=== PATIENT | female | born 1930 | race Caucasian/White ===

== ENCOUNTER 2016-10-17 17:55 | Emergency (ER) | payer MEDICARE, MEDICAID ==
[~2016-10-17] VITALS: Ht 167.6 cm; Wt 65.3 kg
[~2016-10-17 17:55] MED LIST: AMLO5TAB2 PO; ASPI-605 PO; CARV3.122 PO; CEPH-569 PO; DIPH50CA4 PO; DOCU-25 PO; FURO20TA4 PO; HYDR-552 PO; LANS15TA6 PO; MECL12.582 PO; PRAM0.253 PO; ZOLP5TAB2 PO
[2016-10-17 18:45] LABS: BASOPHILS # (AUTO) 0.1 /CMM (0.0-0.2); BASOPHILS % (AUTO) 0.8 % (0.0-2.0); DIFF TOTAL % 100 %; EOSINOPHILS # (AUTO) 0.1 /CMM (0.0-0.7); EOSINOPHILS % (AUTO) 1.1 % (0.0-6.0); HEMATOCRIT 38 % (33-45); HEMOGLOBIN 12.8 g/dL (11.5-14.8); LYMPHOCYTES # (AUTO) 0.8 /CMM (0.8-4.8); MEAN CORPUSCULAR HEMOGLOBIN 29 PG (26.0-33.0); MEAN CORPUSCULAR HGB CONC 34 g/dl (31.0-36.0); MEAN CORPUSCULAR VOLUME 86 fL (82-100); MONOCYTES # (AUTO) 0.6 /CMM (0.1-1.30); MONOCYTES % (AUTO) 5.6 % (2.0-12.0); NEUTROPHILS # (AUTO) 8.8 /CMM (1.8-8.9); NEUTROPHILS % (AUTO) 84.5 % (43.0-81.0); PLATELET COUNT (AUTO) 209 /CMM (150-450); WHITE BLOOD COUNT (AUTO) 10.4 K/uL (4.3-11.0)
[2016-10-17] MEDS ORDERED: TRAM50TA2 PO (18:49)
[2016-10-17] MEDS ORDERED: ROSU5TAB PO (18:49)
[2016-10-17] MEDS ORDERED: LOSA25TA13 PO (18:49)
[2016-10-17] MEDS ORDERED: MECL12.582 PO (18:49)
[2016-10-17 18:59] LABS: ALBUMIN 3.8 g/dL (3.4-5.0); BILIRUBIN,DIRECT 0.1 mg/dL (0.0-0.2); BILIRUBIN,TOTAL 0.4 mg/dL (0.2-1.0); CALCIUM, SERUM 9.1 mg/dL (8.5-10.1); CREATININE 0.8 mg/dL (0.6-1.3); INDIRECT BILIRUBIN 0.3 mg/dL (0.0-1.1); POTASSIUM 4.3 mmol/L (3.5-5.1); TOTAL PROTEIN, SERUM 7.2 g/dL (6.4-8.2)
[2016-10-17] MEDS ORDERED: IV LR 500 ML IV ONE ×2 (19:00→19:20)
[2016-10-17] MEDS ORDERED: ONDANSETRON HCL/PF 4 MG/2 ML VIAL IVP ONE (19:00)
[2016-10-17 19:01] LABS: TROPONIN I 0.035 ng/mL (0.00-0.056)
[2016-10-17] MEDS ORDERED: IV SET PRIMARY 1 EA INFUS.SET MC ONE (19:19)
[2016-10-17] MEDS ORDERED: ONDANSETRON HCL/PF 4 MG/2 ML VIAL ONE (19:19)
[2016-10-17 19:42] LABS: KETONES,URINE Negative (NEGATIVE); LEUKOCYTE ESTERASE ,URINE Trace (NEGATIVE)
[2016-10-17 19:45] LABS: ADD UA MICROSCOPIC YES
[2016-10-17 19:51] VITALS: BP 153/63
[2016-10-17 19:53] LABS: ADD URINE CULTURE NO
[2016-10-17] MEDS ORDERED: SUCRALFATE 1 G/10 ML UDC ONE (20:12)
[2016-10-17] MEDS ORDERED: SUCRALFATE 1 G/10 ML UDC PO ONE (20:30)
[2016-10-17] MEDS ORDERED: IPRATROPIUM NEB FS 0.5 MG/2.5 ML AMPUL.NEB ONE (21:19)
[2016-10-17] MEDS ORDERED: ALBUTEROL FS 2.5 MG/3 ML VIAL.NEB ONE (21:19)
[2016-10-17] MEDS ORDERED: IPRATROPIUM NEB FS 0.5 MG/2.5 ML AMPUL.NEB NEB ONE (21:30)
[2016-10-17] MEDS ORDERED: ALBUTEROL FS 2.5 MG/3 ML VIAL.NEB CONTNEB ONE (21:30)
== END 2016-10-17 19:52 | disposition home or self-care (01) ==
LOC: ER 17:58
DX: R11.2 Nausea with vomiting, unspecified (principal); R19.7 Diarrhea, unspecified; I10 Essential (primary) hypertension; M19.90 Unspecified osteoarthritis, unspecified site; Z95.0 Presence of cardiac pacemaker; Z79.82 Long term (current) use of aspirin; R06.02 Shortness of breath
CPT/HCPCS: 36415; 71010; 80048; 80076; 81001; 83690; 84484; 85025; 93005; 94640 ×2; 96374; 99285; A4606; J2405; J7120; 81000-TC; Z7610

== ENCOUNTER → 2016-10-23 | Emergency (ER) | payer MEDICARE, MEDICAID ==
[~2016-10-23] VITALS: Ht 152.4 cm; Wt 68.0 kg
[~2016-10-23] MED LIST changes: -ASPI-605 PO; -CEPH-569 PO; -DOCU-25 PO; -HYDR-552 PO; +LOSA25TA13 PO; +ROSU5TAB PO; +TRAM50TA2 PO
[2016-10-23 09:33] VITALS: BP 145/70
== END | disposition home or self-care (01) ==
LOC: ER 08:01
DX: K59.00 Constipation, unspecified (principal); M19.90 Unspecified osteoarthritis, unspecified site; I10 Essential (primary) hypertension; Z79.82 Long term (current) use of aspirin
CPT/HCPCS: A4606; Z7610

== ENCOUNTER 2018-06-03 19:24 | Inpatient (IN) | payer MEDICARE, MEDICAID ==
[~2018-06-03] VITALS: Ht 160 cm; Wt 60.3 kg
[~2018-06-03 19:24] MED LIST changes: -AMLO5TAB2 PO; +AMLO5TAB7 PO
--- NOTE | 2018-06-03 19:43 | NUR ---
TO ER BED 9 C/O GENERALIZED WEAKNESS. PT AA/O X4. NO S/S SOB. SKIN PINK, WARM, DRY. MOVES ALL EXTREMITIES WELL. EQUAL CIVIL PROCESS SERVER, EQUAL FACIAL SYMMETRY. NAD. VSS. STABLE CONDITION. WILL CONTINUE TO MONITOR.
[2018-06-03] MEDS ORDERED: IV NS 0.9% 500 ML BAG IV ONE (20:00)
--- NOTE | 2018-06-03 20:03 | NUR ---
XRAY AT BEDSIDE
[2018-06-03 20:07] LABS: BASOPHILS % (AUTO) 0.4 % (0.0-2.0); EOSINOPHILS % (AUTO) 1.6 % (0.0-6.0); HEMATOCRIT 36 % (33-45); HEMOGLOBIN 12.4 g/dL (11.5-14.8); LYMPHOCYTES % (AUTO) 16.5 % (20.0-44.0); MEAN CORPUSCULAR HGB CONC 34 g/dl (31.0-36.0); MEAN CORPUSCULAR VOLUME 88 fL (82-100); MONOCYTES # (AUTO) 0.5 /CMM (0.1-1.30); MONOCYTES % (AUTO) 8.2 % (2.0-12.0); NEUTROPHILS # (AUTO) 4.5 /CMM (1.8-8.9); NEUTROPHILS % (AUTO) 73.3 % (43.0-81.0); PLATELET COUNT (AUTO) 259 /CMM (150-450); RED BLOOD CELL COUNT(AUTO) 4.14 MIL/uL (4.0-5.2); WHITE BLOOD COUNT (AUTO) 6.1 K/uL (4.3-11.0)
[2018-06-03 20:20] LABS: CARBON DIOXIDE 21 mmol/L (21-32); CHLORIDE 93 mmol/L (98-107); CREATININE 1.5 mg/dL (0.6-1.3); GLUCOSE 120 mg/dL (74-106); POTASSIUM 4.9 mmol/L (3.5-5.1); SODIUM SERUM 124 mmol/L (136-145); UREA NITROGEN, BLOOD 32 mg/dL (7-18)
[2018-06-03 20:24] LABS: INR 0.92 (0.85-1.15)
[2018-06-03 20:24] LABS: APPEARANCE,URINE Clear (CLEAR); BILIRUBIN,URINE Negative (NEGATIVE); BLOOD, URINE Negative Ery/uL (NEGATIVE); COLOR,URINE Yellow (YELLOW); KETONES,URINE Negative (NEGATIVE); LEUKOCYTE ESTERASE ,URINE Moderate (NEGATIVE); NITRITE, URINE Positive (NEGATIVE); PH,URINE 5.5 (5.0-8.0); PROTEIN,URINE Negative (NEGATIVE); UGLUCOSE Negative (NEGATIVE); UROBILINOGEN,URINE 0.2 EU/dL (0.2)
[2018-06-03 20:25] LABS: BACTERIA,URINE 4+ /HPF (None Seen); RBC,URINE NONE SEEN /HPF (0-2); SQUAMOUS EPITHELIAL CELL,UR Few /HPF (None Seen); WBC,URINE 21-50 /HPF (0-3)
[2018-06-03 20:28] LABS: TROPONIN I < 0.017 ng/mL (0.00-0.056)
[2018-06-03 20:29] LABS: SERUM AMMONIA 12 umol/L (11-32)
[2018-06-03 20:34] LABS: ALANINE AMINOTRANSFERASE 12 U/L (12-78); ALBUMIN 3.3 g/dL (3.4-5.0); ALKALINE PHOSPHATASE 51 U/L (46-116); ASPARTATE AMINOTRANSFERASE 16 U/L (15-37); BILIRUBIN,DIRECT 0.1 mg/dL (0.0-0.2); BILIRUBIN,TOTAL 0.5 mg/dL (0.2-1.0); TOTAL PROTEIN, SERUM 6.9 g/dL (6.4-8.2)
--- NOTE | 2018-06-03 20:45 | NUR ---
BROUGHT TO CT
[2018-06-03 20:57] LABS: THYROID STIMULATING HORMONE 1.169 uIU/mL (0.358-3.74)
[2018-06-03] MEDS ORDERED: CEFTRIAXONE 1 G VIAL ONE (21:28)
[2018-06-03] MEDS ORDERED: CEFTRIAXONE 1GM BAG (ER ONLY) 1 GM/50 ML PIGGYBACK IV ONE (21:30)
[2018-06-03] MEDS ORDERED: IV NS 0.9% 1,000 ML BAG IV ONE (21:30)
--- NOTE | 2018-06-03 21:59 | NUR ---
REPORT GIVEN TO JORDI DOWNS
[2018-06-03 22:15] VITALS: BP 140/58
--- NOTE | 2018-06-03 22:15 | NUR ---
GEOTECHNICAL ENGINEER NOTES PATIENT ARRIVED ON TO THE UNIT VIA GURNEY AT 2215 ACCOMPANIED BY HER FAMILY. THE PATIENT IS PRIMARILY CZE[place] SPEAKER. PER DAUGHTERS PT HAS BECOME INCREASINGLY MORE WEAK FOR THE PAST FEW WEEKS. THE PATIENT HAS A RIGHT WRIST #18 IV INTACT AND PATENT. EDUCATED THE PATIENT ON THE USE OF THE CALL LIGHT. ALL PATIENT BELONGINGS ACCOUNTED FOR AND DOCUMENTED. PT HAS SOME REDNESS IN THE BUTTOCKS PHOTO TAKEN AND ADDED TO CHART. SAFETY PRECAUTIONS IN PLACE, BED IN LOWEST LOCKED POSITION, X2 SIDE RAILS UP AND CALL LIGHT WITHIN REACH. WILL CONTINUE TO MONITOR.
--- NOTE | 2018-06-03 22:19 | NUR ---
PT TRANSPORTED TO TELE UNIT WITH STABLE CONDITION. NAD. VSS. VIA ACLS PROTOCOL
[2018-06-04] VITALS: BP 141/59
[2018-06-04] MEDS ORDERED: MECLIZINE HCL 12.5 MG TABLET PO PRN
[2018-06-04] MEDS ORDERED: MAG HYDROX/AL HYDROX/SIMETH 30 ML UDC PO PRN
[2018-06-04] MEDS ORDERED: HYDROCODONE/APAP 5/325MG 1 EACH TABLET PO PRN
[2018-06-04] MEDS ORDERED: ACETAMINOPHEN 325 MG TABLET PO PRN
[2018-06-04] MEDS ORDERED: Z GUARD REMEDY 2 OZ OINT TP PRN
[2018-06-04] MEDS ORDERED: ONDANSETRON HCL/PF 4 MG/2 ML VIAL IVP PRN
[2018-06-04] MEDS: MORPHINE SULFATE INJ 2 MG/ML DISP.SYRIN IV PRN ×2 (00:24→05:36)
[2018-06-04] MEDS: IV NS 0.9% 1,000 ML IV SCH ×2 (00:24→20:24)
--- NOTE | 2018-06-04 00:24 | NUR ---
RN NOTES PT REQUESTED PRN PAIN MEDICATION. WILL ADMINISTER MORPHINE 1 MG AND CONTINUE TO MONITOR.
[2018-06-04 04:00] VITALS: BP 154/55
[2018-06-04 06:41] LABS: BASOPHILS % (AUTO) 0.4 % (0.0-2.0); HEMATOCRIT 34 % (33-45); HEMOGLOBIN 11.9 g/dL (11.5-14.8); LYMPHOCYTES # (AUTO) 1.2 /CMM (0.8-4.8); LYMPHOCYTES % (AUTO) 20.1 % (20.0-44.0); MEAN CORPUSCULAR HGB CONC 35 g/dl (31.0-36.0); MEAN CORPUSCULAR VOLUME 88 fL (82-100); MONOCYTES # (AUTO) 0.6 /CMM (0.1-1.30); MONOCYTES % (AUTO) 9.9 % (2.0-12.0); NEUTROPHILS % (AUTO) 67.6 % (43.0-81.0); PLATELET COUNT (AUTO) 215 /CMM (150-450); RED BLOOD CELL COUNT(AUTO) 3.85 MIL/uL (4.0-5.2)
[2018-06-04] MEDS: MAGNESIUM HYDROXIDE 30 ML UDC PO PRN ×2 (06:52→22:33)
--- NOTE | 2018-06-04 06:53 | NUR ---
RN NOTES PT COMPLAINED OF CONSTIPATION FOR 4 DAYS. WILL ADMINISTER MILK OF MAGNESIA AND ENDORSE TO DAY SHIFT NURSE FOR CONTINUITY OF CARE.
--- NOTE | 2018-06-04 06:54 | NUR ---
RN CLOSING NOTES PATIENT AWAKE AND ALERT. NO APPARENT S/S OF PAIN, DISTRESS OR SOB AT THIS TIME. THE PATIENT IS PRIMARILY DANISH SPEAKER. THE PATIENT HAS A RIGHT WRIST #18 IV INTACT AND RUNNING NS @50ML/HR. PT TELE MONITORED V PACING RATE IN THE 70S. ALL PATIENT NEEDS MET OVERNIGHT. SAFETY PRECAUTIONS IN PLACE, BED IN LOWEST LOCKED POSITION, X2 SIDE RAILS UP AND CALL LIGHT WITHIN REACH. WILL ENDORSE TO DAY SHIFT NURSE FOR CONTINUITY OF CARE.
[2018-06-04 07:04] LABS: CHOLESTEROL 127 mg/dL (<200); HDL CHOLESTEROL 42 mg/dL (40-60); LDL 62 mg/dL (0-99); THYROID STIMULATING HORMONE 1.076 uIU/mL (0.358-3.74); TRIGLYCERIDES 165 mg/dL (30-150)
[2018-06-04 07:05] LABS: ALANINE AMINOTRANSFERASE 10 U/L (12-78); ALBUMIN 2.9 g/dL (3.4-5.0); ALKALINE PHOSPHATASE 45 U/L (46-116); ASPARTATE AMINOTRANSFERASE 15 U/L (15-37); BILIRUBIN,TOTAL 0.4 mg/dL (0.2-1.0); CARBON DIOXIDE 21 mmol/L (21-32); CHLORIDE 102 mmol/L (98-107); GLUCOSE 94 mg/dL (74-106); MAGNESIUM 1.7 mg/dL (1.8-2.4); PHOSPHORUS 2.6 mg/dL (2.5-4.9); POTASSIUM 4.3 mmol/L (3.5-5.1); SODIUM SERUM 134 mmol/L (136-145); TOTAL PROTEIN, SERUM 6.1 g/dL (6.4-8.2); UREA NITROGEN, BLOOD 25 mg/dL (7-18)
[2018-06-04] MEDS ORDERED: PANTOPRAZOLE 40 MG TABLET.DR PO SCH (07:30)
[2018-06-04 08:00] VITALS: BP 147/52
--- NOTE | 2018-06-04 08:00 | NUR ---
RN NOTES PATIENT IN BED RESTING NO SOB OR ACUTE DISTRESS NOTED. PATIENT ALERT, ORIENTED X3. PERIPHERAL IV INTACT PATENT. BED IN LOW LOCKED POSITION, CALL LIGHT WITHIN REACH. WILL CONTINUE TO MONITOR.
[2018-06-04] MEDS: PANTOPRAZOLE 40 MG VIAL IV SCH (08:29)
[2018-06-04] MEDS ORDERED: SIMVASTATIN 20 MG TABLET PO SCH (09:00)
[2018-06-04] MEDS ORDERED: MECLIZINE HCL 12.5 MG TABLET PO SCH (09:00)
--- NOTE | 2018-06-04 09:24 | NUR ---
TONGUE AND GROOVE MACHINE SETTER NOTES PATIENT SEEN AND EVALUATED BY DR. SMITH ORDERS TO CHANGE PATIENT FROM NPO TO CARDIAC DIET. NOTED AND CARRIED OUT.
[2018-06-04] MEDS: HYDROCODONE/APAP 10/325MG 1 EA TABLET PO PRN ×3 (09:33→22:19)
[2018-06-04] MEDS: PRAMIPEXOLE DI-HCL 0.25 MG TABLET PO SCH (09:34)
[2018-06-04] MEDS: CARVEDILOL 3.125 MG TABLET PO SCH ×2 (09:34→16:28)
[2018-06-04] MEDS: AMLODIPINE BESYLATE 5 MG TABLET PO SCH (09:35)
[2018-06-04] MEDS: LOSARTAN POTASSIUM 25 MG TABLET PO SCH ×2 (09:35→17:00)
[2018-06-04] MEDS: Magnesium 1GM/D5W 100ML PREMIX 100 ML IV SCH ×2 (11:33→12:42)
[2018-06-04 16:00] VITALS: BP 124/51
--- NOTE | 2018-06-04 19:30 | NUR ---
RN NOTE; RECEIVED PT IN BED AWAKE AND ALERT. BREATHING EVENLY. NO SOB. NAD . SKIN WARM AND DRY, NO C/O PAIN OR DISCOMFORT AT THIS TIME. NEEDS ATTENDED. BED LOW LOCKED .CALL LIGHT WITHIN REACH. WILL CONT TO MONITOR
[2018-06-04 20:00] VITALS: BP 132/52
[2018-06-04 21:08] VITALS: BP 132/52
[2018-06-04] MEDS: CEFTRIAXONE 2 G in IV NS 0.9% 100 ML IV SCH (21:28)
[2018-06-04] MEDS ORDERED: diphenhydrAMINE HCL 50 MG CAPSULE PO PRN (22:00)
--- NOTE | 2018-06-04 22:19 | NUR ---
NORCO 10 GIVEN ORDERED PER PT'S REQUEST FOR C/O BACK PAIN. WILL CONT TO MONITOR
--- NOTE | 2018-06-04 22:33 | NUR ---
PT REPORTED HAD NOT HAD A BM FOR PAST FEW DAYS. PRUNE JUICE AND MOM GIVEN ORDERED. WILL CONT TO MONITOR ,
--- NOTE | 2018-06-05 06:51 | NUR ---
PT IN BED AWAKE. BREATHING EVENLY. W/ ON AND OFF C/O BACKACHE. PAIN MEDICATION GIVEN. REPOSITIONED PT . ASSISTED W/ ADLS. BED LOW LOCKED. CALL LIGHT WITHIN REACH, WILL CONT TO MONITOR AND WILL ENDORSE TO AM SHIFT FOR ANTHONY.
[2018-06-05 07:15] LABS: CALCIUM, SERUM 7.4 mg/dL (8.5-10.1); CARBON DIOXIDE 25 mmol/L (21-32); CHLORIDE 106 mmol/L (98-107); CREATININE 0.9 mg/dL (0.6-1.3); GLUCOSE 93 mg/dL (74-106); MAGNESIUM 2.6 mg/dL (1.8-2.4); POTASSIUM 4.8 mmol/L (3.5-5.1); SODIUM SERUM 140 mmol/L (136-145); UREA NITROGEN, BLOOD 16 mg/dL (7-18)
--- NOTE | 2018-06-05 07:26 | NUR ---
RN OPENING NOTES RECEIVED PATIENT IN BED RESTING. A/OX4, ABLE TO MAKE NEEDS KNOWN. NO ACUTE DISTRESS, NO SOB, DENIED PAIN OR DISCOMFORT. IV SITE INTACT AND PATENT. KEPT PATIENT SAFE AND COMFORTABLE. BED IN LOW/LOCKED POSITION, SIDERAILS UPX2, CALL LIGHT IN REACH. WILL CONTINUE TO MONITOR ACCORDINGLY.
[2018-06-05 07:32] LABS: BASOPHILS % (AUTO) 0.4 % (0.0-2.0); EOSINOPHILS % (AUTO) 2.6 % (0.0-6.0); HEMATOCRIT 35 % (33-45); HEMOGLOBIN 11.7 g/dL (11.5-14.8); LYMPHOCYTES # (AUTO) 1.4 /CMM (0.8-4.8); LYMPHOCYTES % (AUTO) 29.3 % (20.0-44.0); MEAN CORPUSCULAR HGB CONC 34 g/dl (31.0-36.0); MEAN CORPUSCULAR VOLUME 91 fL (82-100); MONOCYTES # (AUTO) 0.5 /CMM (0.1-1.30); MONOCYTES % (AUTO) 10.1 % (2.0-12.0); NEUTROPHILS # (AUTO) 2.8 /CMM (1.8-8.9); NEUTROPHILS % (AUTO) 57.6 % (43.0-81.0); PLATELET COUNT (AUTO) 220 /CMM (150-450); RED BLOOD CELL COUNT(AUTO) 3.79 MIL/uL (4.0-5.2); WHITE BLOOD COUNT (AUTO) 4.8 K/uL (4.3-11.0)
[2018-06-05 08:00] VITALS: BP 149/64
[2018-06-05] MEDS: PANTOPRAZOLE 40 MG VIAL IV SCH (08:07)
[2018-06-05] MEDS: AMLODIPINE BESYLATE 5 MG TABLET PO SCH (08:08)
[2018-06-05] MEDS: CARVEDILOL 3.125 MG TABLET PO SCH ×2 (08:09→18:01)
[2018-06-05] MEDS: PRAMIPEXOLE DI-HCL 0.25 MG TABLET PO SCH (08:09)
[2018-06-05] MEDS: HYDROCODONE/APAP 10/325MG 1 EA TABLET PO PRN ×2 (08:09→14:30)
[2018-06-05] MEDS: LOSARTAN POTASSIUM 25 MG TABLET PO SCH ×2 (08:10→18:02)
[2018-06-05] MEDS ORDERED: K PHOS NEUTRAL 250 MG TABLET PO ONE (10:30)
[2018-06-05 12:44] LABS: IRON, SERUM 53 ug/dl (50-175); TOTAL IRON BINDING CAPACITY 205 ug/dl (250-450)
[2018-06-05 12:56] LABS: FERRITIN 212 ng/mL (8-388)
[2018-06-05 16:00] VITALS: BP 157/66
--- NOTE | 2018-06-05 19:20 | NUR ---
RN CLOSING NOTES PATIENT IN STABLE CONDITION. ALL NEEDS ATTENDED AND PROVIDED. ALL DUE MEDICATIONS GIVEN ORDERED. KEPT PATIENT SAFE AND COMFORTABLE. BED IN LOW/LOCKED POSITION, HOB ELEVATED, SIDERAILS UPX2, CALL LIGHT IN REACH. ENDORSED TO NIGHT RN FOR ANTHONY.
--- NOTE | 2018-06-05 19:35 | NUR ---
MS RN OPENING NOTES RECEIVED PATIENT IN BED RESTING. AWAKE, A/OX4, ABLE TO MAKE NEEDS KNOWN. NO ACUTE DISTRESS, NO SOB, DENIED PAIN OR DISCOMFORT. IV SITE TO LFA, SL, INTACT AND PATENT. BRP WITH ASSIST. ON CARDIAC DIET, TOLERATING WELL. SAFETY MEASURES IN PLACE. BED IN LOW/LOCKED POSITION, SIDE RAILS UPX2, CALL LIGHT IN REACH. WILL CONTINUE TO MONITOR ACCORDINGLY.
[2018-06-05 20:00] VITALS: BP 157/53
[2018-06-05] MEDS: CEFTRIAXONE 2 G in IV NS 0.9% 100 ML IV SCH (21:41)
--- NOTE | 2018-06-05 23:38 | NUR ---
PRN ZOFRAN & NORCO GIVEN PATIENT VERBALIZED C/O PAIN /10, GENERALIZED & HAS NAUSEA AT THIA TIME, NO VOMITING NOTED. VSS. PATIENT ASKED TO GET PAIN MEDICINE. PRN ZOFRAN & NORCO GIVEN, WILL REASSESS FOR EFFECTIVENESS OF BOTH MEDICINES.
[2018-06-06] MEDS: HYDROCODONE/APAP 10/325MG 1 EA TABLET PO PRN ×2 (04:33→14:57)
--- NOTE | 2018-06-06 04:33 | NUR ---
PRN NORCO GIVEN PATIENT VERBALIZED C/O BACK PAIN 03/24. PRN NORCO GIVEN, WILL REASSESS FOR EFFECTIVENESS OF NORCO. PATIENT MADE COMFORTABLE IN BED.
--- NOTE | 2018-06-06 06:32 | NUR ---
MS RN CLOSING NOTES PATIENT SLEPT INTERMITTENTLY AT NIGHT. A/OX4, GHANAIAN SPEAKING, ABLE TO MAKE NEEDS KNOWN. NO ACUTE DISTRESS, NO SOB, DENIED PAIN OR DISCOMFORT AT THIS TIME. IV SITE TO LATESHA, ROMERO, INTACT AND PATENT. BRP WITH ASSIST. ON CARDIAC DIET, TOLERATING WELL. SAFETY MEASURES IN PLACE. BED IN LOW/LOCKED POSITION, SIDE RAILS UPX2, CALL LIGHT IN REACH. WILL ENDORSE TO AM RN FOR CONTINUITY OF CARE.
[2018-06-06 06:44] LABS: BASOPHILS % (AUTO) 0.5 % (0.0-2.0); EOSINOPHILS % (AUTO) 3.4 % (0.0-6.0); HEMATOCRIT 36 % (33-45); HEMOGLOBIN 12.3 g/dL (11.5-14.8); LYMPHOCYTES # (AUTO) 1.3 /CMM (0.8-4.8); LYMPHOCYTES % (AUTO) 20.6 % (20.0-44.0); MEAN CORPUSCULAR HGB CONC 34 g/dl (31.0-36.0); MEAN CORPUSCULAR VOLUME 89 fL (82-100); MONOCYTES # (AUTO) 0.5 /CMM (0.1-1.30); NEUTROPHILS # (AUTO) 4.2 /CMM (1.8-8.9); NEUTROPHILS % (AUTO) 67.5 % (43.0-81.0); PLATELET COUNT (AUTO) 250 /CMM (150-450); RED BLOOD CELL COUNT(AUTO) 4.04 MIL/uL (4.0-5.2); WHITE BLOOD COUNT (AUTO) 6.2 K/uL (4.3-11.0)
[2018-06-06 07:16] LABS: CALCIUM, SERUM 7.7 mg/dL (8.5-10.1); CARBON DIOXIDE 25 mmol/L (21-32); CHLORIDE 106 mmol/L (98-107); CREATININE 0.8 mg/dL (0.6-1.3); GLUCOSE 111 mg/dL (74-106); MAGNESIUM 2.3 mg/dL (1.8-2.4); PHOSPHORUS 2.2 mg/dL (2.5-4.9); POTASSIUM 4.9 mmol/L (3.5-5.1); SODIUM SERUM 140 mmol/L (136-145); UREA NITROGEN, BLOOD 8 mg/dL (7-18)
--- NOTE | 2018-06-06 07:45 | NUR ---
RN MS NOTES PT IN BED, AWAKE, ALERT AND ORIENTED, NO COMPLAINT AT THIS TIME, RESPIRATIONS NORMAL, DAUGHTER AT BEDSIDE, PLAN OF CARE WITH DAUGHTER, VERBALIZED UNDERSTANDING, CALL LIGHT WITHIN REACH, ASSISTED TO BATHROOM NEEDED.
[2018-06-06 08:00] VITALS: BP 170/76
[2018-06-06] MEDS: LOSARTAN POTASSIUM 25 MG TABLET PO SCH ×2 (09:22→17:02)
[2018-06-06] MEDS: PRAMIPEXOLE DI-HCL 0.25 MG TABLET PO SCH (09:22)
[2018-06-06] MEDS: AMLODIPINE BESYLATE 5 MG TABLET PO SCH (09:23)
[2018-06-06] MEDS: CARVEDILOL 3.125 MG TABLET PO SCH ×2 (09:23→17:02)
--- NOTE | 2018-06-06 11:35 | NUR ---
RN MS NOTES PT IN BED, AWAKE, ALERT AND ORIENTED, FAMILY AT BEDSIDE, SEEN BY KEON LOPEZ CHAIR SPRINGER, PLAN OF CARE DISCUSSED WITH PT AND FAMILY, VERBALIZED UNDERSTANDING.
[2018-06-06] MEDS ORDERED: LOSA25TA3 PO (12:17)
[2018-06-06] MEDS ORDERED: GABA100C PO (12:17)
[2018-06-06] MEDS ORDERED: NAPR250T4 PO (12:17)
[2018-06-06] MEDS ORDERED: NEUTRA PHOS 1 POWD.PACKET PO ONE (12:30)
[2018-06-06] MEDS: GABAPENTIN 100 MG CAPSULE PO SCH ×2 (12:39→17:01)
[2018-06-06 13:49] VITALS: BP 159/57
[2018-06-06] MEDS ORDERED: ONDA4TAB5 PO (14:36)
[2018-06-06 16:00] VITALS: BP 148/57
[2018-06-06] MEDS ORDERED: NAPROXEN 250 MG TABLET PO SCH (17:00)
--- NOTE | 2018-06-06 18:16 | NUR ---
RN MS NOTES PT IN BED, AWAKE, ALERT AND ORIENTED, NO COMPLAINT OF PAIN AT THIS TIME, ATE WELL AT DINNERTIME, DISCHARGE ORDER GIVEN BY DR. LOPEZ, PT AND FAMILY INFORMED, DISCHARGE AND MEDICATION INSTRUCTIONS PROVIDED TO PT AND FAMILY, VERBALIZED UNDERSTANDING, REPORT GIVEN TO BHAVNA WU AT [facility], BELONGINGS ACCOUNTED FOR, AWAITING AMBULANCE VENEER LATHE OPERATOR.
[2018-06-06] MEDS ORDERED: CLONIDINE HCL 0.1 MG TABLET PO ONE (19:00)
[2018-06-06 19:08] VITALS: BP 187/72
--- NOTE | 2018-06-06 19:10 | NUR ---
RN MS NOTES PT IN BED, AWAKE, ALERT AND ORIENTED, NO COMPLAINT OF PAIN, NOT IN DISTRESS, NO COMPLAINT OF DIZZINESS OR HEADACHE, AMBULANCE HOG CONFINEMENT SYSTEM MANAGER ARRIVED, PT'S BP 187/72, HR 79, KEON LOPEZ GOLD STAMPER INFORMED, ORDER GIVEN FOR ONE TIME CLONIDINE, NOTED AND CARRIED OUT, WILL CONTINUE TO MONITOR BP, ENDORSED TO RESIDENT CARE ASSOCIATE NURSE FOR CONTINUITY OF CARE.
--- NOTE | 2018-06-06 19:43 | NUR ---
RN NOTES PT PICKED UP BY EMT OF [facility]. PT IN NO ACUTE DISTRESS, AWAKE, ALERT AND ORIENTED X 4, NO SOB, BREATHING EVEN AND UNLABORED IN ROOM AIR. PT/S DAUGHTER AT BEDSIDE. UPON RECHECKING BP= 144/78 HR= 62. PT VERBALIZED THAT SHE IS OK AND DENIES PAIN. REMOVED IV PERIPHERAL LINE ON LFA. NO BLEEDING NOTED, PT TOLERATED PROCEDURE WELL. EXITED UNIT SAFELY VIA GURNEY. CALLED BHAVNA OF [facility] AND GAVE UPDATE RE: PATIENT'S LATEST BP.
== END 2018-06-06 19:43 | DRG 689 ==
LOC: ER 19:26 → TELE 22:32 → MED 06-04 09:41
PROVIDERS: ADMIT Registered Nurse; ATTEND Registered Nurse
DX: N39.0 Urinary tract infection, site not specified (principal); N17.0 Acute kidney failure with tubular necrosis; E87.1 Hypo-osmolality and hyponatremia; I50.9 Heart failure, unspecified; E86.0 Dehydration; I11.0 Hypertensive heart disease with heart failure; E66.9 Obesity, unspecified; E83.42 Hypomagnesemia; G89.29 Other chronic pain; I27.20 Pulmonary hypertension, unspecified; M54.10 Radiculopathy, site unspecified; R13.10 Dysphagia, unspecified; R47.02 Dysphasia; Z95.0 Presence of cardiac pacemaker; M54.40 Lumbago with sciatica, unspecified side; B96.89 Other specified bacterial agents as the cause of diseases classified elsewhere
CPT/HCPCS: 36415; 70450-TC; 71045-TC; 80048-TC; 80053-TC; 80061-TC; 80076-TC; 81000-TC; 82140-TC; 82728-TC; 83540-TC; 83605-TC; 83735-TC; 83880; 84100-TC; 84443-TC; 84484-TC; 85025-TC; 85730-TC; 87081-TC; 87086-TC; 87186-TC; 92611-TC; 93307-TC; 97116-TC; 97530-TC; A4216; A4606; C9113; G0378; J0696; J2270; J2405; J3475; J7030; J7040; Z7610

== ENCOUNTER 2018-08-17 09:34 | Inpatient (IN) | payer MEDICARE, MEDICAID ==
[~2018-08-17] VITALS: Ht 165.1 cm; Wt 56.8 kg
[~2018-08-17 09:34] MED LIST changes: -AMLO5TAB7 PO; +AMLO5TAB9 PO; -FURO20TA4 PO; +GABA100C PO; -LOSA25TA13 PO; +LOSA25TA27 PO; +LOSA25TA3 PO; +NAPR250T4 PO; +ONDA4TAB5 PO; -TRAM50TA2 PO
[2018-08-17] MEDS ORDERED: ACETAMINOPHEN ES 500 MG TABLET PO ONE (11:00)
[2018-08-17 11:14] LABS: BASOPHILS % (AUTO) 0.4 % (0.0-2.0); EOSINOPHILS % (AUTO) 1.2 % (0.0-6.0); HEMATOCRIT 36 % (33-45); HEMOGLOBIN 12.2 g/dL (11.5-14.8); LYMPHOCYTES # (AUTO) 1.1 /CMM (0.8-4.8); LYMPHOCYTES % (AUTO) 11.7 % (20.0-44.0); MEAN CORPUSCULAR HGB CONC 34 g/dl (31.0-36.0); MEAN CORPUSCULAR VOLUME 90 fL (82-100); MONOCYTES # (AUTO) 0.7 /CMM (0.1-1.30); MONOCYTES % (AUTO) 7.5 % (2.0-12.0); NEUTROPHILS # (AUTO) 7.2 /CMM (1.8-8.9); NEUTROPHILS % (AUTO) 79.2 % (43.0-81.0); PLATELET COUNT (AUTO) 298 /CMM (150-450); RED BLOOD CELL COUNT(AUTO) 4.04 MIL/uL (4.0-5.2); WHITE BLOOD COUNT (AUTO) 9.1 K/uL (4.3-11.0)
[2018-08-17] MEDS ORDERED: ACETAMINOPHEN ES 500 MG TABLET ONE (11:16)
[2018-08-17 11:25] LABS: CARBON DIOXIDE 31 mmol/L (21-32); CHLORIDE 103 mmol/L (98-107); CREATININE 0.8 mg/dL (0.6-1.3); GLUCOSE 109 mg/dL (74-106); POTASSIUM 3.8 mmol/L (3.5-5.1); SODIUM SERUM 140 mmol/L (136-145); UREA NITROGEN, BLOOD 21 mg/dL (7-18)
[2018-08-17] MEDS ORDERED: GABA-532 PO (11:25)
[2018-08-17] MEDS ORDERED: TRAM50TA2 PO (11:25)
[2018-08-17] MEDS ORDERED: DOCU-141 PO (11:25)
[2018-08-17] MEDS ORDERED: EPLE25TA10 PO (11:25)
[2018-08-17] MEDS ORDERED: CLON0.1T PO (11:25)
[2018-08-17] MEDS ORDERED: KETOROLAC TROMETHAMINE INJ 30 MG/ML VIAL IV STA (12:41)
[2018-08-17] MEDS ORDERED: KETOROLAC TROMETHAMINE 15 MG/ML VIAL ONE (13:21)
[2018-08-17 14:27] VITALS: BP 158/80
[2018-08-17] MEDS ORDERED: MORPHINE SULFATE INJ 2 MG/ML DISP.SYRIN IV PRN (14:30)
[2018-08-17] MEDS ORDERED: ACETAMINOPHEN 325 MG TABLET PO PRN (14:30)
[2018-08-17] MEDS ORDERED: MAGNESIUM HYDROXIDE 30 ML UDC PO PRN (14:30)
[2018-08-17] MEDS ORDERED: ONDANSETRON HCL/PF 4 MG/2 ML VIAL IVP PRN (14:30)
[2018-08-17] MEDS ORDERED: Z GUARD REMEDY 2 OZ OINT TP PRN (14:30)
[2018-08-17] MEDS ORDERED: MAG HYDROX/AL HYDROX/SIMETH 30 ML UDC PO PRN (14:30)
[2018-08-17] MEDS: HYDROCODONE/APAP 5/325MG 1 EACH TABLET PO PRN (14:50)
[2018-08-17] MEDS: CLONIDINE HCL 0.1 MG TABLET PO PRN (14:50)
[2018-08-17] MEDS: IV NS 0.9% 1,000 ML IV PRN (14:51)
[2018-08-17] MEDS ORDERED: HYDROMORPHONE INJ 0.5 MG/0.5 ML SYRINGE IV PRN (15:00)
[2018-08-17 16:00] VITALS: BP 141/71
[2018-08-17 16:06] VITALS: BP 141/71
[2018-08-17] MEDS: TRAMADOL HCL 50 MG TABLET PO SCH (16:37)
[2018-08-17] MEDS: CARVEDILOL 3.125 MG TABLET PO SCH (16:37)
[2018-08-17] MEDS: DOCUSATE SODIUM 100 MG CAPSULE PO SCH (16:37)
[2018-08-17] MEDS: LOSARTAN POTASSIUM 25 MG TABLET PO SCH (16:38)
[2018-08-17] MEDS ORDERED: GABAPENTIN 100 MG CAPSULE PO SCH (17:00)
[2018-08-17 20:00] VITALS: BP 152/62
[2018-08-17] MEDS: METHOCARBAMOL (500MG) 500 MG TABLET PO SCH (20:38)
[2018-08-17] MEDS: KETOROLAC TROMETHAMINE INJ 30 MG/ML VIAL IV SCH (21:12)
[2018-08-17] MEDS: HYDROCODONE/APAP 10/325MG 1 EA TABLET PO PRN (22:47)
[2018-08-18] MEDS: KETOROLAC TROMETHAMINE INJ 30 MG/ML VIAL IV SCH ×3 (05:15→20:08)
[2018-08-18 06:44] LABS: BASOPHILS % (AUTO) 0.5 % (0.0-2.0); EOSINOPHILS % (AUTO) 2.3 % (0.0-6.0); HEMATOCRIT 34 % (33-45); HEMOGLOBIN 11.7 g/dL (11.5-14.8); LYMPHOCYTES # (AUTO) 1.1 /CMM (0.8-4.8); MEAN CORPUSCULAR HGB CONC 34 g/dl (31.0-36.0); MEAN CORPUSCULAR VOLUME 90 fL (82-100); MONOCYTES # (AUTO) 0.4 /CMM (0.1-1.30); MONOCYTES % (AUTO) 6.7 % (2.0-12.0); NEUTROPHILS # (AUTO) 4.8 /CMM (1.8-8.9); NEUTROPHILS % (AUTO) 73.5 % (43.0-81.0); PLATELET COUNT (AUTO) 268 /CMM (150-450); RED BLOOD CELL COUNT(AUTO) 3.83 MIL/uL (4.0-5.2); WHITE BLOOD COUNT (AUTO) 6.6 K/uL (4.3-11.0)
[2018-08-18] MEDS: IV NS 0.9% 1,000 ML IV PRN (06:44)
[2018-08-18 07:06] LABS: CALCIUM, SERUM 8.4 mg/dL (8.5-10.1); CARBON DIOXIDE 31 mmol/L (21-32); CHLORIDE 106 mmol/L (98-107); CREATININE 0.9 mg/dL (0.6-1.3); GLUCOSE 98 mg/dL (74-106); MAGNESIUM 1.9 mg/dL (1.8-2.4); PHOSPHORUS 4.3 mg/dL (2.5-4.9); POTASSIUM 4.2 mmol/L (3.5-5.1); SODIUM SERUM 142 mmol/L (136-145); UREA NITROGEN, BLOOD 24 mg/dL (7-18)
[2018-08-18 08:00] VITALS: BP 180/66
[2018-08-18] MEDS: DOCUSATE SODIUM 100 MG CAPSULE PO SCH ×2 (08:26→17:18)
[2018-08-18] MEDS: ATORVASTATIN 10 MG TABLET PO SCH (08:26)
[2018-08-18] MEDS: PRAMIPEXOLE DI-HCL 0.25 MG TABLET PO SCH (08:27)
[2018-08-18] MEDS: CARVEDILOL 3.125 MG TABLET PO SCH ×2 (08:27→17:18)
[2018-08-18] MEDS: METHOCARBAMOL (500MG) 500 MG TABLET PO SCH ×3 (08:27→17:19)
[2018-08-18] MEDS: GABAPENTIN 100 MG CAPSULE PO SCH ×3 (08:27→17:19)
[2018-08-18] MEDS: TRAMADOL HCL 50 MG TABLET PO SCH ×3 (08:28→17:19)
[2018-08-18] MEDS: CLONIDINE HCL 0.1 MG TABLET PO PRN ×2 (08:28→22:06)
[2018-08-18] MEDS: LOSARTAN POTASSIUM 25 MG TABLET PO SCH ×2 (08:28→17:19)
[2018-08-18] MEDS ORDERED: EPLERENONE 25 MG PO SCH (09:00)
[2018-08-18] MEDS: HYDROCODONE/APAP 10/325MG 1 EA TABLET PO PRN (11:32)
[2018-08-18 16:00] VITALS: BP 151/53
[2018-08-18 20:11] VITALS: BP 165/53
[2018-08-18] MEDS: HYDROCODONE/APAP 5/325MG 1 EACH TABLET PO PRN (22:07)
[2018-08-19] MEDS: HYDROCODONE/APAP 10/325MG 1 EA TABLET PO PRN (02:18)
[2018-08-19] MEDS: IV NS 0.9% 1,000 ML IV PRN ×2 (02:18→20:26)
[2018-08-19] MEDS: KETOROLAC TROMETHAMINE INJ 30 MG/ML VIAL IV SCH ×3 (05:06→20:34)
[2018-08-19 08:00] VITALS: BP 127/66
[2018-08-19] MEDS: LOSARTAN POTASSIUM 25 MG TABLET PO SCH ×2 (08:27→16:10)
[2018-08-19] MEDS: CARVEDILOL 3.125 MG TABLET PO SCH ×2 (08:28→16:11)
[2018-08-19] MEDS: METHOCARBAMOL (500MG) 500 MG TABLET PO SCH ×3 (08:28→16:10)
[2018-08-19] MEDS: ATORVASTATIN 10 MG TABLET PO SCH (08:28)
[2018-08-19] MEDS: DOCUSATE SODIUM 100 MG CAPSULE PO SCH ×2 (08:28→16:10)
[2018-08-19] MEDS: GABAPENTIN 100 MG CAPSULE PO SCH ×3 (08:29→16:08)
[2018-08-19] MEDS: TRAMADOL HCL 50 MG TABLET PO SCH ×3 (08:29→16:09)
[2018-08-19] MEDS: PRAMIPEXOLE DI-HCL 0.25 MG TABLET PO SCH (08:29)
[2018-08-19] MEDS: CLONIDINE HCL 0.1 MG TABLET PO PRN ×2 (16:00→16:08)
[2018-08-19 20:00] VITALS: BP_SYST 153; BP_SYST 164; BP_DIAS 60; BP_DIAS 81
[2018-08-19] MEDS ORDERED: HYDROMORPHONE MDV 2 MG/ML VIAL IV PRN (22:15)
[2018-08-19] MEDS ORDERED: HYDROMORPHONE 2 MG/1 ML SDV IV PRN (22:20)
[2018-08-19] MEDS: HYDROMORPHONE INJ 2 MG/ML DISP.SYRIN IV PRN (22:31)
[2018-08-20] MEDS: KETOROLAC TROMETHAMINE INJ 30 MG/ML VIAL IV SCH ×3 (05:20→21:00)
[2018-08-20 08:00] VITALS: BP 180/77
[2018-08-20] MEDS: LOSARTAN POTASSIUM 25 MG TABLET PO SCH ×2 (08:18→16:15)
[2018-08-20] MEDS: CARVEDILOL 3.125 MG TABLET PO SCH ×2 (08:18→16:15)
[2018-08-20] MEDS: DOCUSATE SODIUM 100 MG CAPSULE PO SCH ×2 (08:18→16:14)
[2018-08-20] MEDS: GABAPENTIN 100 MG CAPSULE PO SCH ×3 (08:18→16:15)
[2018-08-20] MEDS: TRAMADOL HCL 50 MG TABLET PO SCH ×3 (08:19→16:15)
[2018-08-20] MEDS: METHOCARBAMOL (500MG) 500 MG TABLET PO SCH ×3 (08:20→16:14)
[2018-08-20] MEDS: ATORVASTATIN 10 MG TABLET PO SCH (08:37)
[2018-08-20] MEDS: PRAMIPEXOLE DI-HCL 0.25 MG TABLET PO SCH (08:37)
[2018-08-20] MEDS: AMLODIPINE BESYLATE 5 MG TABLET PO SCH (09:23)
[2018-08-20] MEDS: LIDOCAINE 5% (PATCH) 1 EA PATCH TP SCH (09:23)
[2018-08-20 09:43] VITALS: BP 156/57
[2018-08-20 16:00] VITALS: BP 155/68
[2018-08-20] MEDS: IV NS 0.9% 1,000 ML IV PRN (19:40)
[2018-08-20 20:00] VITALS: BP 158/52
[2018-08-21] MEDS: HYDROMORPHONE INJ 2 MG/ML DISP.SYRIN IV PRN ×2 (03:30→09:24)
[2018-08-21] MEDS: KETOROLAC TROMETHAMINE INJ 30 MG/ML VIAL IV SCH ×3 (05:00→21:00)
[2018-08-21 08:00] VITALS: BP 160/74
[2018-08-21] MEDS: AMLODIPINE BESYLATE 5 MG TABLET PO SCH (08:49)
[2018-08-21] MEDS: DOCUSATE SODIUM 100 MG CAPSULE PO SCH ×2 (08:49→16:50)
[2018-08-21] MEDS: GABAPENTIN 100 MG CAPSULE PO SCH ×3 (08:49→16:49)
[2018-08-21] MEDS: ATORVASTATIN 10 MG TABLET PO SCH (08:50)
[2018-08-21] MEDS: METHOCARBAMOL (500MG) 500 MG TABLET PO SCH ×3 (08:50→16:49)
[2018-08-21] MEDS: TRAMADOL HCL 50 MG TABLET PO SCH ×3 (08:50→16:50)
[2018-08-21] MEDS: PRAMIPEXOLE DI-HCL 0.25 MG TABLET PO SCH (08:51)
[2018-08-21] MEDS: CARVEDILOL 3.125 MG TABLET PO SCH ×2 (08:56→16:50)
[2018-08-21] MEDS: LOSARTAN POTASSIUM 25 MG TABLET PO SCH ×2 (08:57→16:50)
[2018-08-21] MEDS: IV NS 0.9% 1,000 ML IV PRN (09:13)
[2018-08-21] MEDS: LIDOCAINE 5% (PATCH) 1 EA PATCH TP SCH (09:24)
[2018-08-21 15:58] VITALS: BP 177/76
[2018-08-21] MEDS: CLONIDINE HCL 0.1 MG TABLET PO PRN (16:03)
[2018-08-21 20:37] VITALS: BP 156/59
[2018-08-22 04:00] VITALS: BP 130/70
[2018-08-22] MEDS: KETOROLAC TROMETHAMINE INJ 30 MG/ML VIAL IV SCH ×2 (04:04→13:00)
[2018-08-22 08:00] VITALS: BP 175/71
[2018-08-22] MEDS: ATORVASTATIN 10 MG TABLET PO SCH (08:57)
[2018-08-22] MEDS: METHOCARBAMOL (500MG) 500 MG TABLET PO SCH ×3 (08:59→16:30)
[2018-08-22] MEDS: DOCUSATE SODIUM 100 MG CAPSULE PO SCH ×2 (09:00→16:31)
[2018-08-22] MEDS: GABAPENTIN 100 MG CAPSULE PO SCH ×3 (09:00→16:30)
[2018-08-22] MEDS: PRAMIPEXOLE DI-HCL 0.25 MG TABLET PO SCH (09:00)
[2018-08-22] MEDS: LIDOCAINE 5% (PATCH) 1 EA PATCH TP SCH (09:02)
[2018-08-22] MEDS: TRAMADOL HCL 50 MG TABLET PO SCH ×3 (09:02→16:30)
[2018-08-22] MEDS: CARVEDILOL 3.125 MG TABLET PO SCH ×2 (09:07→16:31)
[2018-08-22] MEDS: AMLODIPINE BESYLATE 5 MG TABLET PO SCH (09:07)
[2018-08-22] MEDS: LOSARTAN POTASSIUM 25 MG TABLET PO SCH ×2 (09:08→16:30)
[2018-08-22 10:00] VITALS: BP 131/50
[2018-08-22] MEDS: HYDROMORPHONE INJ 2 MG/ML DISP.SYRIN IV PRN (10:19)
[2018-08-22] MEDS: CLONIDINE HCL 0.1 MG TABLET PO PRN (13:50)
[2018-08-22 16:31] VITALS: BP 148/60
== END 2018-08-22 16:45 | DRG 551 ==
LOC: ER 09:37 → MED 12:14 → MEDSG2 08-22 10:40 → MED 08-22 13:16
PROVIDERS: ADMIT Internal Medicine; ATTEND Internal Medicine
DX: M54.30 Sciatica, unspecified side (principal); N17.0 Acute kidney failure with tubular necrosis; I50.30 Unspecified diastolic (congestive) heart failure; M47.26 Other spondylosis with radiculopathy, lumbar region; I10 Essential (primary) hypertension; E78.5 Hyperlipidemia, unspecified; I11.0 Hypertensive heart disease with heart failure; R42 Dizziness and giddiness; E86.0 Dehydration; Z79.891 Long term (current) use of opiate analgesic; M47.27 Other spondylosis with radiculopathy, lumbosacral region; G89.4 Chronic pain syndrome
CPT/HCPCS: 36415; 71045-TC; 72100-TC; 72131-TC; 80048-TC; 83735-TC; 84100-TC; 85025-TC; 87081-TC; 97116-TC; 97530-TC; G0378; J1170; J1885; J7030